=== PATIENT | male | born 1990 | race Caucasian/White ===

== ENCOUNTER 2020-11-29 11:51 | Emergency (ER) | payer MEDICAID ==
[~2020-11-29] VITALS: Ht 170.2 cm; Wt 98.4 kg
[2020-11-29 12:10] VITALS: BP 144/95
--- NOTE | 2020-11-29 12:13 | NUR ---
Patient ambulated to bed 9. RN evaluating the patient at bedside.
--- NOTE | 2020-11-29 12:14 | NUR ---
Dr. Ruiz is evaluating the patient at bedside.
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
[2020-11-29 13:15] VITALS: BP 144/95
--- NOTE | 2020-11-29 13:16 | NUR ---
Patient discharged with v/s stable. Written and verbal after care instructions about rib contusion given and explained. Patient verbalized understanding. Ambulatory with steady gait. All questions addressed prior to discharge. Advised to follow up with PMD.
== END 2020-11-29 13:16 | disposition home or self-care (01) ==
LOC: MED 11:51
DX: S20.211A Contusion of right front wall of thorax, initial encounter (principal); F12.10 Cannabis abuse, uncomplicated; R03.0 Elevated blood-pressure reading, without diagnosis of hypertension; W17.89XA Other fall from one level to another, initial encounter; Y93.89 Activity, other specified; Y92.89 Other specified places as the place of occurrence of the external cause; Y99.8 Other external cause status
CPT/HCPCS: 71101; 99283